=== PATIENT | male | born 1960 | race Caucasian/White ===

== ENCOUNTER 2016-06-22 07:15 | Emergency (ER) | payer OTHER ==
[~2016-06-22] VITALS: Ht 180.3 cm; Wt 95.0 kg
[~2016-06-22 07:15] MED LIST: ASPIR-LOW81 MG PO; CLOPIDOGREL75 MG PO; FLEXERIL10 MG PO; Flexeril PO; HYDROCODON-ACE1 EAC7 PO; LIPITOR40 MG PO; LO-DOSE ASPIRIN81 M2 PO; LOSARTAN POTAS100 MG PO; NICOTINE PATCH1 EAC2 TD; NORCO 5/3251 TABLET PO; Norco 5/325 PO; PLAVIX75 MG PO; PROTONIX40 MG PO; SIMVASTATIN40 MG PO
[2016-06-22 08:04] LABS: HEMATOCRIT 43.9 % (38.0-50.0); MCH 26.7 PG (29.0-34.0); MCHC 31.7 G/DL (30.0-36.0); MCV 84.3 FL (86-99); MEAN PLAT.VOLUME 9.6 uM^3 (9.0-12.4); PLATELET COUNT 319 K/uL (156-360); RBC DIS.WIDTH-CV 14.1 % (11.8-14.6); RBC DIS.WIDTH-SD 43.2 % (39-53); RED BLOOD COUNT 5.21 M/uL (4.00-5.50); WHITE BLOOD COUNT 8.8 K/uL (4.1-10.2)
[2016-06-22 08:28] LABS: CHLORIDE 107 mEq/L (99-109); POTASSIUM 4.3 mEq/L (3.7-5.4); SODIUM 140 mEq/L (136-147)
[2016-06-22 08:30] LABS: GLUCOSE 110 mg/dL (70-99)
[2016-06-22 08:31] LABS: TROP-I INTERPRETATION NEGATIVE; TROPONIN-I < 0.01 ng/mL (0.0-0.30)
[2016-06-22 08:32] LABS: ANION GAP 10 MEQ/L (2-14); TOTAL BILIRUBIN 0.4 mg/dL (0.0-1.0)
[2016-06-22 08:34] LABS: ALKALINE PHOSPHATASE 38 IU/L (3-129); GFR ESTIMATE (CALCULATED) > 59 mL/min/
[2016-06-22 08:35] LABS: UREA NITROGEN (BUN) 15 mg/dL (9-23)
[2016-06-22 08:38] LABS: LIPASE 22 U/L (1.0-51.0)
[2016-06-22 08:42] LABS: PTT 27.5 (25-32)
[2016-06-22] MEDS ORDERED: FLEXERIL10 MG PO (09:15)
[2016-06-22] MEDS ORDERED: PERCOCET 5/31 TABLET PO (09:48)
[2016-06-22 09:49] LABS: ADD MIUA? YES; BILIRUBIN NEGATIVE; BLOOD SMALL; COLOR YELLOW ((YELLOW)); GLUCOSE (STRIP) NEGATIVE; KETONES NEGATIVE; LEUKOCYTES MODERATE; NITRITE NEGATIVE; PROTEIN (STRIP) NEGATIVE; SPECIFIC GRAVITY 1.012 (1.000-1.030); UROBILINOGEN 0.2 MG/DL (0.2-1.0)
[2016-06-22 09:55] LABS: BACTERIA 1+ /HPF; CALCIUM OXALATE CRYSTALS 1+ /HPF; EPITHELIAL CELLS RARE /HPF; MUCUS TRACE /LPF; WHITE BLOOD CELLS 40-50 /HPF (0-5)
[2016-06-22] MEDS ORDERED: CIPRO500 MG PO (09:59)
[2016-06-22 10:10] VITALS: BP 158/82
== END 2016-06-22 10:12 | disposition home or self-care (01) ==
LOC: EME → TRA 07:15 → EME 07:15 → TRA 10:12
PROVIDERS: Nurse Practitioner Family
DX: S16.1XXA Strain of muscle, fascia and tendon at neck level, initial encounter (principal); N39.0 Urinary tract infection, site not specified; M54.9 Dorsalgia, unspecified; V67.5XXA Driver of heavy transport vehicle injured in collision with fixed or stationary object in traffic accident, initial encounter; Y92.488 Other paved roadways as the place of occurrence of the external cause; Z86.73 Personal history of transient ischemic attack (TIA), and cerebral infarction without residual deficits
CPT/HCPCS: 70450; 71020; 72040; 72070; 80053; 81003; 83690; 84484; 85027; 85610; 85730; 93005; 99281; 99285